=== PATIENT | male | born 1985 | race Caucasian/White ===

== ENCOUNTER 2017-01-27 22:33 | Emergency (ER) | payer SELFPAY ==
--- NOTE | 2017-01-28 02:51 | ED ORDER SUMMARY ---
..... Patient: RADHA MOONEY OrderSheet [facility] VisitID: [id number] [address] [place] [address] 31y, M Registration Date/Time: 01/27/2017 ORDER SHEET Weight: 81.6 kg Allergies: Penicillins GENERAL ORDERS: I&D Tray (23:52 01/27/2017 Maddison MILTON) (0:02 RKaruga) Culture, Wound Deep (Arm) (swab) Urgent (00:56 01/28/2017 Maddison MILTON) (Ack 1:01 Christine ER Tech1) (1:12 CHernandez R.N.) CBC w Diff Urgent (00:57 01/28/2017 Maddison MILTON) (Ack 1:01 Chrsitine ER Tech1) (1:12 CHernandez R.N.) MEDICATION ORDERS: Bactrim DS PO (Tablet 800-160 mg) 2 tabs (NOW) (00:57 01/28/2017 Maddison MILTON) (Ack 0:59 Gelynandez R.N.) (1:45 JSanders R.N.) IV FLUIDS: Vancomycin IV 25 mg/kg (NOW) (00:56 01/28/2017 Maddison MILTON) (Ack 0:56 Gelynandez R.N.) (1:44 JSanders R.N.) IV NS : initial bolus none -, then 250 mL/hr for 4h (NOW); Routine (00:57 01/28/2017 Maddison MILTON) (Ack 0:58 Gelynandez R.N.) (1:42 JSanders R.N.) ORDER SHEET NOTES: [Electronically signed by Toshia Crawford R.N. (04:14 01/28/2017)] [Electronically signed by Sergio Martinez MD (09:16 01/29/2017)] [Electronically locked/signed by Toshia Crawford R.N. (04:14 01/28/2017)]
--- NOTE | 2017-01-28 02:51 | ED NURSING NOTES ---
Clinical Report - Nurses [facility] [place] [address] 01/27/2017 22:34 Patient: RADHA MOONEY TRIAGE Triage time 23:20. Acuity: LEVEL 3. Chief Complaint: LEFT UPPER EXTREMITY PAIN, SWELLING and REDNESS. Location of symptoms- left forearm. --23:29 Kirit Meneses R.N. Weight: 81.6 kg. Height/Length: 73 inches. BMI: 23.7. --23:28 Kirit Meneses R.N. Medications None. --23:24 Kirit Meneses R.N. (aunt). --23:29 Kirit Meneses R.N. Allergies Penicillins. --23:24 Kirit Meneses R.N. History Arrived by private vehicle. Historian: family (aunt). Accompanied by family. ( Shooting drugs on his left arm and developed abscess on his left forearm. Increased redness and swelling on his forearm in the last 2 days. No fever.). This occurred (3 days ago). He has had large area of redness with tenderness and heat at wound site on left forearm. Treatment INSTRUCTIONAL SYSTEMS DESIGN CONSULTANT: None. PAST MEDICAL HX: Tetanus status: unknown. SOCIAL HX: Heavy tobacco smoker (cigarette)- 1 pack per day. History of weekly drug use: methamphetamines. (3 days ago). --23:29 Kirit Meneses R.N. PROBLEMS: Substance Abuse. Tetanus Status. Abscess. Asthma. Immunizations. --23:26 Kirit Meneses R.N. Interventions ID band on patient. To room. --23:29 Kirit Meneses R.N. PHYSICAL ASSESSMENT Ambulatory to room. GENERAL / NEURO / PSYCH: Alert. Appears in no acute distress. EXTREMITIES: Erythema with tenderness, warmth, swelling and lymphangitis to left forearm. Extremities exhibit normal ROM. Left forearm: tenderness, swelling, erythema and large abrasion. SKIN: Extremity wound present. Skin is warm. --23:32 Kirit Meneses R.N. NURSING PROGRESS NOTES Patient identifiers checked. Call light placed in reach. Side rails up x 1. Bed placed in lowest position. Brakes of bed on. Patient ready for evaluation- chart flagged and ED physician and TOOL CLERK notified. --23:33 Kirit Meneses R.N. 01:06 01/28/2017 Site #1 started via IV in the right antecubital space with an 20g angiocath; one attempt. Blood drawn: rainbow set. Labeled in the presence of the patient and sent to the lab. Saline lock flushed with 10 mL saline. --01:06 Kirit Meneses R.N. Patient ID band checked for patient name and birthdate: family confirmed. Blood samples drawn from the right antecubital space peripheral IV site (prior to IV fluid start) by nurse ; labeled in presence of the patient and sent to lab: rainbow set. Line flushed with 10 mL normal saline post blood draw. --01:07 Kirit Meneses R.N. late entry - 01:30 01/28/17. Care transferred and report received (Kirit, RN). --01:50 Toshia Crawford R.N. 01:42 01/28/2017 Started bag #1 1000 mL IV Fluids IV NS (Saline); at 250 mL/hr over 4 hour(s) via site #1 via IV pump. Allergies verified and confirmed 5 rights. IV patency established. IV site checked: no pain, redness, or swelling. IV flushed thoroughly pre- and post-medication administration. --01:42 Toshia Crawford R.N. 01:42 01/28/17. ( Patient requested mother to come back to room since he was getting ABO through IV.). --01:42 Toshia Crawford R.N. 01:44 01/28/2017 Started 2 gm of Vancomycin IVPB in bag #1 500 mL; at 270 mL/hr over 2 hour(s) via site #1 via IV pump. Allergies verified and confirmed 5 rights. IV patency established. IV site checked: no pain, redness, or swelling. IV flushed thoroughly pre- and post-medication administration (Patient dose came out to 2040mg Patient given 2Gram Vancomycin in 500mL bag of NS after Vanc diluted with 20cc sterile water each). --01:44 Toshia Crawford R.N. 01:45 01/28/2017 Bactrim DS (Sulfamethoxazole-TMP DS) PO Tablets 2 tab given. Allergies verified and confirmed 5 rights. --01:45 Toshia Crawford R.N. 01:55 01/28/17. ( Patient not having any allergic reaction to vancomycin). --01:55 Toshia Crawford R.N. 01:55 01/28/17. ( Patient is tolerating well, no redness at IV site, no SOB or flushing noted). --01:55 Toshia Crawford R.N. 02:19 01/28/17. ( Patient doing ok, talking amongst himself. No blanket needed at this time per patient). --02:19 Toshia Crawford R.N. 02:25 01/28/2017 IV Fluids IV NS Discontinued: bag #1 discontinued. Total amount infused: 10 mL. IV patency established. IV site checked: no pain, redness, or swelling. IV flushed thoroughly. --04:08 Toshia Crawford R.N. 02:25 01/28/2017 Vancomycin IVPB Discontinued: bag #2 discontinued. Total amount infused: 100 mL. IV patency established. IV site checked: no pain, redness, or swelling. IV flushed thoroughly. --04:08 Toshia Crawford R.N. DISPOSITION / DISCHARGE 02:25 01/28/2017 Site #1 removed upon discharge. Bandaid applied. --04:09 Toshia Crawford R.N. 04:11 01/28/17. Departure time: 02:35 Jan 28 2017. The patient left the Emergency Department without completion of treatment; patient was accompanied by a family member. (Confused/disoriented). He notified the ED staff prior to leaving the department and stated is leaving the ED due to the long waiting time. Notified the ED physician and charge nurse of patient departure. Prior to leaving the ED, he was advised to stay for completion of treatment and return if needed. He was informed of the risks of leaving and verbalized understanding of these risks. Patient signed form prior to leaving. He left the Emergency Department ambulatory and via private vehicle. --04:11 Toshia Crawford R.N. Locked/Released at 01/28/2017 4:14 by Toshia Crawford R.N.
--- NOTE | 2017-01-28 02:51 | ED NURSING NOTES ---
Clinical Report - Nurses Merged With [facility] [place] [address] 01/27/2017 22:34 Patient: RADHA MOONEY TRIAGE Triage time 23:20. Acuity: LEVEL 3. Chief Complaint: LEFT UPPER EXTREMITY PAIN, SWELLING and REDNESS. Location of symptoms- left forearm. --23:29 Kirit Meneses R.N. Weight: 81.6 kg. Height/Length: 73 inches. BMI: 23.7. --23:28 Kirit Meneses R.N. Medications None. --23:24 Kirit Meneses R.N. (aunt). --23:29 Kirit Meneses R.N. Allergies Penicillins. --23:24 Kirit Meneses R.N. History Arrived by private vehicle. Historian: family (aunt). Accompanied by family. ( Shooting drugs on his left arm and developed abscess on his left forearm. Increased redness and swelling on his forearm in the last 2 days. No fever.). This occurred (3 days ago). He has had large area of redness with tenderness and heat at wound site on left forearm. Treatment CAREER DEVELOPMENT CONSULTANT: None. PAST MEDICAL HX: Tetanus status: unknown. SOCIAL HX: Heavy tobacco smoker (cigarette)- 1 pack per day. History of weekly drug use: methamphetamines. (3 days ago). --23:29 Kirit Meneses R.N. PROBLEMS: Substance Abuse. Tetanus Status. Abscess. Asthma. Immunizations. --23:26 Kirit Meneses R.N. Interventions ID band on patient. To room. --23:29 Kirit Meneses R.N. PHYSICAL ASSESSMENT Ambulatory to room. GENERAL / NEURO / PSYCH: Alert. Appears in no acute distress. EXTREMITIES: Erythema with tenderness, warmth, swelling and lymphangitis to left forearm. Extremities exhibit normal ROM. Left forearm: tenderness, swelling, erythema and large abrasion. SKIN: Extremity wound present. Skin is warm. --23:32 Kirit Meneses R.N. NURSING PROGRESS NOTES Patient identifiers checked. Call light placed in reach. Side rails up x 1. Bed placed in lowest position. Brakes of bed on. Patient ready for evaluation- chart flagged and ED physician and INTERNAL COMMUNICATIONS WRITER notified. --23:33 Kirit Meneses R.N. 01:06 01/28/2017 Site #1 started via IV in the right antecubital space with an 20g angiocath; one attempt. Blood drawn: rainbow set. Labeled in the presence of the patient and sent to the lab. Saline lock flushed with 10 mL saline. --01:06 Kirit Meneses R.N. Patient ID band checked for patient name and birthdate: family confirmed. Blood samples drawn from the right antecubital space peripheral IV site (prior to IV fluid start) by nurse ; labeled in presence of the patient and sent to lab: rainbow set. Line flushed with 10 mL normal saline post blood draw. --01:07 Kirit Meneses R.N. late entry - 01:30 01/28/17. Care transferred and report received (Kirit, RN). --01:50 Toshia Crawford R.N. 01:42 01/28/2017 Started bag #1 1000 mL IV Fluids IV NS (Saline); at 250 mL/hr over 4 hour(s) via site #1 via IV pump. Allergies verified and confirmed 5 rights. IV patency established. IV site checked: no pain, redness, or swelling. IV flushed thoroughly pre- and post-medication administration. --01:42 Toshia Crawford R.N. 01:42 01/28/17. ( Patient requested mother to come back to room since he was getting ABO through IV.). --01:42 Toshia Crawford R.N. 01:44 01/28/2017 Started 2 gm of Vancomycin IVPB in bag #1 500 mL; at 270 mL/hr over 2 hour(s) via site #1 via IV pump. Allergies verified and confirmed 5 rights. IV patency established. IV site checked: no pain, redness, or swelling. IV flushed thoroughly pre- and post-medication administration (Patient dose came out to 2040mg Patient given 2Gram Vancomycin in 500mL bag of NS after Vanc diluted with 20cc sterile water each). --01:44 Toshia Crawford R.N. 01:45 01/28/2017 Bactrim DS (Sulfamethoxazole-TMP DS) PO Tablets 2 tab given. Allergies verified and confirmed 5 rights. --01:45 Toshia Crawford R.N. 01:55 01/28/17. ( Patient not having any allergic reaction to vancomycin). --01:55 Toshia Crawford R.N. 01:55 01/28/17. ( Patient is tolerating well, no redness at IV site, no SOB or flushing noted). --01:55 Toshia Crawford R.N. 02:19 01/28/17. ( Patient doing ok, talking amongst himself. No blanket needed at this time per patient). --02:19 Toshia Crawford R.N. 02:25 01/28/2017 IV Fluids IV NS Discontinued: bag #1 discontinued. Total amount infused: 10 mL. IV patency established. IV site checked: no pain, redness, or swelling. IV flushed thoroughly. --04:08 Toshia Crawford R.N. 02:25 01/28/2017 Vancomycin IVPB Discontinued: bag #2 discontinued. Total amount infused: 100 mL. IV patency established. IV site checked: no pain, redness, or swelling. IV flushed thoroughly. --04:08 Toshia Crawford R.N. DISPOSITION / DISCHARGE 02:25 01/28/2017 Site #1 removed upon discharge. Bandaid applied. --04:09 Toshia Crawford R.N. 04:11 01/28/17. Departure time: 02:35 Jan 28 2017. The patient left the Emergency Department without completion of treatment; patient was accompanied by a family member. (Confused/disoriented). He notified the ED staff prior to leaving the department and stated is leaving the ED due to the long waiting time. Notified the ED physician and charge nurse of patient departure. Prior to leaving the ED, he was advised to stay for completion of treatment and return if needed. He was informed of the risks of leaving and verbalized understanding of these risks. Patient signed form prior to leaving. He left the Emergency Department ambulatory and via private vehicle. --04:11 Toshia Crawford R.N. Locked/Released at 01/28/2017 4:14 by Toshia Crawford R.N.
--- NOTE | 2017-01-28 02:51 | ED CLINICAL REPORT ---
Clinical Report - Physicians/Mid Levels [facility] [address] [place] [address] 01/27/2017 22:34 Patient: RADHA MOONEY Time Seen: 23:47 Dangelo 2016. Arrived- By private vehicle. Historian- patient. CPT: ER phys charges level 4 plus (#125133). Abscess complicated I&D (#[id number]). HISTORY OF PRESENT ILLNESS Chief Complaint: BOIL and TENDER AREA. 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 It is described as painful. It has been located on the left forearm. A cause has been identified. (IVDA). Similar symptoms previously: None. Recent medical care: Not recently seen/assessed. REVIEW OF SYSTEMS No fever, chills, sore throat, cough or difficulty breathing. No hoarseness, lump in throat, enlarged lymph nodes, chest pain or abdominal pain. No nausea, difficulty with urination, joint pain or vomiting. All systems otherwise negative, except as recorded above. PAST HISTORY Substance Abuse. Tetanus Status. Abscess today Asthma. Immunizations. Medications: None. Allergies: Penicillins. SOCIAL HISTORY Heavy tobacco smoker (cigarette)- 1 pack per day. History of IV drug use: methamphetamines. No alcohol use. ADDITIONAL NOTES The nursing notes have been reviewed. PHYSICAL EXAM Appearance: Alert. Anxious. Patient in mild distress. (psychomotor agitation consistent with methamphetamine use.). Eyes: Pupils equal, round and reactive to light. Conjunctivae and eyelids normal. ENT: Ears normal. Nose normal. Pharynx normal. Neck: Neck supple. CVS: Normal heart rate and rhythm. Heart sounds normal. No cardiac murmur. Respiratory: No respiratory distress. Breath sounds normal. Chest nontender. Abdomen: Nontender. Skin: Skin warm and dry. Single large abscess with fluctuance, pointing and cellulitis to left forearm. Extremities: (see above,). Neuro: Oriented X 3. No motor deficit. No sensory deficit. LABS, X-RAYS, AND EKG Laboratory Tests: CBC w Diff: (NITA: 01/28/2017 01:10) ( MsgRcvd 01/28/2017 01:23) Final results Test Result Flag Units (Reference) WHITE BLOOD COUNT 19.5 H K/uL (4.5-11.5) RED BLOOD COUNT 5.76 M/uL (4.50-5.90) HEMOGLOBIN 15.9 gm/dL (13.5-17.5) HEMATOCRIT 48.4 % (41.0-53.0) MEAN CELL VOLUME 84 fL (80-100) MEAN CORPUSCULAR HGB 28 pg (26-34) MEAN CORPUSCULAR HGB CONC 33 g/dL (31-37) RED CELL DISTRIBUTION WIDTH 14.3 % (11.6-14.8) PLATELET COUNT 383 K/uL (150-400) LYMPH % 14.4 L % (25-40) MONO % 4.8 % (3-14) GRANULOCYTE % 80.8 Culture, Wound Deep: (NITA: 01/28/2017 01:10) ( MsgRcvd 01/28/2017 02:18) IP SPECIMEN DESCRIPTION: SWAB Test Result Flag Units (Reference) GRAM STAIN, WOUND, DEEP GRAM POSITIVE COCCI: MODERATE WHITE BLOOD CELLS: RARE . PROGRESS AND PROCEDURES Incision & Drainage of Abscess: The abscess is located in the left forearm. Consent was obtained. Anesthesia provided using 2% lidocaine with bicarb. The abscess was incised with a #11 surgical blade. A large amount of pus was drained. Cavity was irrigated with saline and packed with gauze. Sample obtained for cultures and gram stain. A dressing was applied. Estimated blood loss: 3 mL. ( Pt would only tolerate packing of a small amount of gauze into the wound.). Course of Care: IV NS Vancomycin 2g IV Bactrim 2 po 02:38 01/28/17. patient now requesting to stop vancomycin IV and go home. Apparently his family needs to leave. He is dependent on his family for a ride home. AMA discussion is provided. Patient will sign out AMA Only 1/3 of vanco infusion completed. Patient/family counseled. Disposition: Discharged home (AMA). CLINICAL IMPRESSION Single deep abscess to the left upper extremity with incision and drainage (forearm). Substance abuse problems: abuse of methamphetamine. Substance dependence problems: dependence on methamphetamine. Leaving AMA. INSTRUCTIONS Warnings: Further evaluation is necessary. Prescription Medications: Bactrim DS 800 mg / 160 mg: take 1 tablet orally every 12 hours for 14 days. No refill. Keflex 500 mg: take 1 capsule orally every 12 hours for 14 days. No refill. OTC Medications: Acetaminophen (available over the counter): take according to label instructions. Follow-up: Return to the emergency department if cannot get to clinic Doctor. in two days. Understanding of the discharge instructions verbalized by patient. AMA warnings: Time of assessment: 224. Oriented to person, place, and time. Gives appropriate answers and rational explanation of refusal of care. No indication for involuntary commitment is present, signs of psychosis, auditory hallucinations, delusional thinking or suicidal ideations. No slurred speech. Speaks coherently. Clinical Impression: the patient has the capacity to make decisions regarding the medical care offered. Relevant issues reviewed and discussed with the patient and family. Aware of suspected diagnosis suggested by screening exam. The suspected diagnosis, based upon the initiated medical screening exam, is deep abscess left forearm. and has been discussed with the patient and family. Acknowledges understanding of the reasons for recommendations regarding medical treatment. The recommended medical care being refused has been discussed with the patient and family. The risks of refusing recommended care that were disclosed and acknowledged are , loss of limb and loss of current lifestyle. Discharge instructions were provided to the patient and responsible libertarian. REFUSAL OF CARE STATEMENT (patient to review and sign in discharge instructions): I have read this paragraph. I understand that a doctor at this hospital wants to give me certain medical care. The doctor explained that care to me, and I understand what that care is. The doctor also explained to me what could happen to me if I leave here without having that care, and I understand what he said. I know that I am welcome to return to this hospital at any time to receive the recommended care or any other care that I may need at any time, regardless of my ability to pay for such care. Follow-up with: [facility], , , [address], , [place], [phone] Follow up in two days. Call for the next available appointment. (Electronically signed by Sergio Martinez MD 01/29/2017 9:16)
--- NOTE | 2017-01-28 02:51 | ED ORDER SUMMARY ---
..... Patient: RADHA MOONEY OrderSheet [facility] VisitID: [id number] [address] [place] [address] 31y, M Registration Date/Time: 01/27/2017 ORDER SHEET Weight: 81.6 kg Allergies: Penicillins GENERAL ORDERS: I&D Tray (23:52 01/27/2017 Maddison MILTON) (0:02 RKaruga) Culture, Wound Deep (Arm) (swab) Urgent (00:56 01/28/2017 Maddison MILTON) (Ack 1:01 Christine ER Tech1) (1:12 CHernandez R.N.) CBC w Diff Urgent (00:57 01/28/2017 Maddison MILTON) (Ack 1:01 Christine ER Tech1) (1:12 CHernandez R.N.) MEDICATION ORDERS: Bactrim DS PO (Tablet 800-160 mg) 2 tabs (NOW) (00:57 01/28/2017 Maddison MILTON) (Ack 0:59 Gelynandez R.N.) (1:45 JSanders R.N.) IV FLUIDS: Vancomycin IV 25 mg/kg (NOW) (00:56 01/28/2017 Maddison MILTON) (Ack 0:56 Gelynandez R.N.) (1:44 JSanders R.N.) IV NS : initial bolus none -, then 250 mL/hr for 4h (NOW); Routine (00:57 01/28/2017 Maddison MILTON) (Ack 0:58 Gelynandez R.N.) (1:42 JSanders R.N.) ORDER SHEET NOTES: [Electronically signed by Toshia Crawford R.N. (04:14 01/28/2017)] [Electronically signed by Sergio Martinez MD (09:16 01/29/2017)] [Electronically locked/signed by Toshia Crawford R.N. (04:14 01/28/2017)]
--- NOTE | 2017-01-28 02:51 | ED CLINICAL REPORT ---
Clinical Report - Physicians/Mid Levels [facility] [address] [place] [address] 01/27/2017 22:34 Patient: RADHA MOONEY Time Seen: 23:47 Dangelo 2016. Arrived- By private vehicle. Historian- patient. CPT: ER phys charges level 4 plus (#[id number]). Abscess complicated I&D (#[id number]). HISTORY OF PRESENT ILLNESS Chief Complaint: BOIL and TENDER AREA. This started 3 days [employer]ATCH UP [employer] and is still present (worse). It is described as painful. It has been located on the left forearm. A cause has been identified. (IVDA). Similar symptoms previously: None. Recent medical care: Not recently seen/assessed. REVIEW OF SYSTEMS No fever, chills, sore throat, cough or difficulty breathing. No hoarseness, lump in throat, enlarged lymph nodes, chest pain or abdominal pain. No nausea, difficulty with urination, joint pain or vomiting. All systems otherwise negative, except as recorded above. PAST HISTORY Substance Abuse. Tetanus Status. Abscess today Asthma. Immunizations. Medications: None. Allergies: Penicillins. SOCIAL HISTORY Heavy tobacco smoker (cigarette)- 1 pack per day. History of IV drug use: methamphetamines. No alcohol use. ADDITIONAL NOTES The nursing notes have been reviewed. PHYSICAL EXAM Appearance: Alert. Anxious. Patient in mild distress. (psychomotor agitation consistent with methamphetamine use.). Eyes: Pupils equal, round and reactive to light. Conjunctivae and eyelids normal. ENT: Ears normal. Nose normal. Pharynx normal. Neck: Neck supple. CVS: Normal heart rate and rhythm. Heart sounds normal. No cardiac murmur. Respiratory: No respiratory distress. Breath sounds normal. Chest nontender. Abdomen: Nontender. Skin: Skin warm and dry. Single large abscess with fluctuance, pointing and cellulitis to left forearm. Extremities: (see above,). Neuro: Oriented X 3. No motor deficit. No sensory deficit. LABS, X-RAYS, AND EKG Laboratory Tests: CBC w Diff: (NITA: 01/28/2017 01:10) ( MsgRcvd 01/28/2017 01:23) Final results Test Result Flag Units (Reference) WHITE BLOOD COUNT 19.5 H K/uL (4.5-11.5) RED BLOOD COUNT 5.76 M/uL (4.50-5.90) HEMOGLOBIN 15.9 gm/dL (13.5-17.5) HEMATOCRIT 48.4 % (41.0-53.0) MEAN CELL VOLUME 84 fL (80-100) MEAN CORPUSCULAR HGB 28 pg (26-34) MEAN CORPUSCULAR HGB CONC 33 g/dL (31-37) RED CELL DISTRIBUTION WIDTH 14.3 % (11.6-14.8) PLATELET COUNT 383 K/uL (150-400) LYMPH % 14.4 L % (25-40) MONO % 4.8 % (3-14) GRANULOCYTE % 80.8 Culture, Wound Deep: (NITA: 01/28/2017 01:10) ( MsgRcvd 01/28/2017 02:18) IP SPECIMEN DESCRIPTION: SWAB Test Result Flag Units (Reference) GRAM STAIN, WOUND, DEEP GRAM POSITIVE COCCI: MODERATE WHITE BLOOD CELLS: RARE . PROGRESS AND PROCEDURES Incision & Drainage of Abscess: The abscess is located in the left forearm. Consent was obtained. Anesthesia provided using 2% lidocaine with bicarb. The abscess was incised with a #11 surgical blade. A large amount of pus was drained. Cavity was irrigated with saline and packed with gauze. Sample obtained for cultures and gram stain. A dressing was applied. Estimated blood loss: 3 mL. ( Pt would only tolerate packing of a small amount of gauze into the wound.). Course of Care: IV NS Vancomycin 2g IV Bactrim 2 po 02:38 01/28/17. patient now requesting to stop vancomycin IV and go home. Apparently his family needs to leave. He is dependent on his family for a ride home. AMA discussion is provided. Patient will sign out AMA Only 1/3 of vanco infusion completed. Patient/family counseled. Disposition: Discharged home (AMA). CLINICAL IMPRESSION Single deep abscess to the left upper extremity with incision and drainage (forearm). Substance abuse problems: abuse of methamphetamine. Substance dependence problems: dependence on methamphetamine. Leaving AMA. INSTRUCTIONS Warnings: Further evaluation is necessary. Prescription Medications: Bactrim DS 800 mg / 160 mg: take 1 tablet orally every 12 hours for 14 days. No refill. Keflex 500 mg: take 1 capsule orally every 12 hours for 14 days. No refill. OTC Medications: Acetaminophen (available over the counter): take according to label instructions. Follow-up: Return to the emergency department if cannot get to clinic Doctor. in two days. Understanding of the discharge instructions verbalized by patient. AMA warnings: Time of assessment: 224. Oriented to person, place, and time. Gives appropriate answers and rational explanation of refusal of care. No indication for involuntary commitment is present, signs of psychosis, auditory hallucinations, delusional thinking or suicidal ideations. No slurred speech. Speaks coherently. Clinical Impression: the patient has the capacity to make decisions regarding the medical care offered. Relevant issues reviewed and discussed with the patient and family. Aware of suspected diagnosis suggested by screening exam. The suspected diagnosis, based upon the initiated medical screening exam, is deep abscess left forearm. and has been discussed with the patient and family. Acknowledges understanding of the reasons for recommendations regarding medical treatment. The recommended medical care being refused has been discussed with the patient and family. The risks of refusing recommended care that were disclosed and acknowledged are , loss of limb and loss of current lifestyle. Discharge instructions were provided to the patient and responsible republican. REFUSAL OF CARE STATEMENT (patient to review and sign in discharge instructions): I have read this paragraph. I understand that a doctor at this hospital wants to give me certain medical care. The doctor explained that care to me, and I understand what that care is. The doctor also explained to me what could happen to me if I leave here without having that care, and I understand what he said. I know that I am welcome to return to this hospital at any time to receive the recommended care or any other care that I may need at any time, regardless of my ability to pay for such care. Follow-up with: [facility], , , [address], , [place], [id number] Follow up in two days. Call for the next available appointment. (Electronically signed by Sergio Martinez MD 01/29/2017 9:16)
--- NOTE | 2017-01-29 09:17 | ED MAR SUMMARY ---
..... Medication Administration Record [facility] [address] [place] [address] Patient: RADHA MOONEY Visit ID: [id number] 31y, M Weight: 81.6 kg Height/Length: 73 in BMI: 23.7 ALLERGIES: Penicillins Start 01:42 01/28/2017 Toshia Crawford R.N., Stop 02:01/28/2017 Toshia Crawford R.N. Medication Administered: IV NS (SALINE), Dose: IV Fluids over 4 hour(s), Rate: 250 mL/hr, Dispensed: 1000 mL bag, Site: #1 right AC. Medication Ordered: IV NS : initial bolus none -, then 250 mL/hr for 4h (NOW); Routine. Start 01:44 01/28/2017 Toshia Crawford R.N., Stop 02:01/28/2017 Toshia Crawford R.N. Medication Administered: VANCOMYCIN [IVPB], Dose: 2 gm IVPB over 2 hour(s), Rate: 270 mL/hr, Dispensed: 500 mL bag, Site: #1 right AC. Medication Ordered: Vancomycin IV 25 mg/kg (NOW). Given 01:45 01/28/2017 Toshia Crawford R.N. Medication Administered: BACTRIM DS [PO] (SULFAMETHOXAZOLE-TMP DS), Dose: 2 tab Tablets PO. Medication Ordered: Bactrim DS PO (Tablet 800-160 mg) 2 tabs (NOW).
--- NOTE | 2017-01-29 09:17 | ED MED RECONCILIATION SUMMARY ---
Patient: RADHA MOONEY Medication Reconciliation Report [facility] VisitID: [id number] [address] [place] [address] 31y, M Registration Date/Time: 01/27/2017 Weight: 81.6 kg Height/Length: 73 in. BMI: 23.7 ALLERGIES: Penicillins The patient's Home Medications are listed below: NONE. The source(s) of the original Home Medication information: aunt The following Medications were given to the patient in the Emergency Department: IV NS IV Fluids bolus 0, then 250 mL/hr, administered: 01/28/2017 1:42:00 AM Vancomycin [IVPB] IVPB bolus 0, then 2 gm 270 mL/hr, administered: 01/28/2017 1:44:00 AM Bactrim DS [PO] PO 2 tab, administered: 01/28/2017 1:45:00 AM The following Medications were prescribed to the patient: Acetaminophen (available over the counter): take according to label instructions. -- Sergio Martinez MD Bactrim DS 800 mg / 160 mg: take 1 tablet orally every 12 hours for 14 days. No refill. -- Sergio Martinez MD Keflex 500 mg: take 1 capsule orally every 12 hours for 14 days. No refill. -- Sergio Martinez MD
--- NOTE | 2017-01-29 09:17 | ED MED RECONCILIATION SUMMARY ---
Patient: RADHA MOONEY Medication Reconciliation Report [facility] VisitID: [id number] [address] [place] [address] 31y, M Registration Date/Time: 01/27/2017 Weight: 81.6 kg Height/Length: 73 in. BMI: 23.7 ALLERGIES: Penicillins The patient's Home Medications are listed below: NONE. The source(s) of the original Home Medication information: aunt The following Medications were given to the patient in the Emergency Department: IV NS IV Fluids bolus 0, then 250 mL/hr, administered: 01/28/2017 1:42:00 AM Vancomycin [IVPB] IVPB bolus 0, then 2 gm 270 mL/hr, administered: 01/28/2017 1:44:00 AM Bactrim DS [PO] PO 2 tab, administered: 01/28/2017 1:45:00 AM The following Medications were prescribed to the patient: Acetaminophen (available over the counter): take according to label instructions. -- Sergio Martinez MD Bactrim DS 800 mg / 160 mg: take 1 tablet orally every 12 hours for 14 days. No refill. -- Sergio Martinez MD Keflex 500 mg: take 1 capsule orally every 12 hours for 14 days. No refill. -- Sergio Martinez MD
--- NOTE | 2017-01-29 09:17 | ED DISCHARGE INSTRUCTIONS ---
Patient: RADHA MOONEY General Instructions [facility] VisitID: [id number] [place] [address] 31y, M Registration Date/Time: 01/27/2017 Single deep abscess to the left upper extremity with incision and drainage (forearm). Substance abuse problems: abuse of methamphetamine. Substance dependence problems: dependence on methamphetamine. Leaving AMA. INSTRUCTIONS Warnings: Further evaluation is necessary. Prescription Medications: Bactrim DS 800 mg / 160 mg: take 1 tablet orally every 12 hours for 14 days. No refill. Keflex 500 mg: take 1 capsule orally every 12 hours for 14 days. No refill. OTC Medications: Acetaminophen (available over the counter): take according to label instructions. Follow-up: Return to the emergency department if cannot get to clinic Doctor. in two days. Understanding of the discharge instructions verbalized by patient. AMA warnings: Time of assessment: 0225. Oriented to person, place, and time. Gives appropriate answers and rational explanation of refusal of care. No indication for involuntary commitment is present, signs of psychosis, auditory hallucinations, delusional thinking or suicidal ideations. No slurred speech. Speaks coherently. Clinical Impression: the patient has the capacity to make decisions regarding the medical care offered. Relevant issues reviewed and discussed with the patient and family. Aware of suspected diagnosis suggested by screening exam. The suspected diagnosis, based upon the initiated medical screening exam, is deep abscess left forearm. and has been discussed with the patient and family. Acknowledges understanding of the reasons for recommendations regarding medical treatment. The recommended medical care being refused has been discussed with the patient and family. The risks of refusing recommended care that were disclosed and acknowledged are , loss of limb and loss of current lifestyle. Discharge instructions were provided to the patient and responsible green party. REFUSAL OF CARE STATEMENT (patient to review and sign in discharge instructions): I have read this paragraph. I understand that a doctor at this hospital wants to give me certain medical care. The doctor explained that care to me, and I understand what that care is. The doctor also explained to me what could happen to me if I leave here without having that care, and I understand what he said. I know that I am welcome to return to this hospital at any time to receive the recommended care or any other care that I may need at any time, regardless of my ability to pay for such care. Follow-up with: [facility], , , [address], [facility], [id number] Follow up in two days. Call for the next available appointment. ADDITIONAL INFORMATION Abscess [Incision & Drainage] An abscess (sometimes called a boil) occurs when bacteria get trapped under the skin and begin to grow. Pus forms inside the abscess as the body responds to the bacteria. An abscess can occur with an insect bite, ingrown hair, blocked oil gland, pimple, cyst, or puncture wound. Treatment of your abscess has required an incision to drain the pus. If the abscess pocket was large, a gauze packing may have been inserted. This will need to be removed and possibly replaced on your next visit. Antibiotics are not required in the treatment of a simple abscess, unless the infection is spreading into the skin around the wound (known as cellulitis). Healing of the wound will take about one to two weeks depending on the size of the abscess. Healthy tissue will grow from the bottom and sides of the opening until it seals over. Home Care: The wound may drain for the first two days. Cover the wound with a clean dry dressing. If the dressing becomes soaked with blood or pus, change it. If a gauze packing was placed inside the abscess cavity, you may be advised to remove it yourself. You may do this in the shower. Once the packing is removed, you should wash the area in the shower or bath 3 to 4 times a day, until the skin opening has closed. If you were prescribed antibiotics, take them as directed until they are all gone. You may use acetaminophen (Tylenol) or ibuprofen (Motrin, Advil) to control pain, unless another pain medicine was prescribed. [ NOTE: If you have liver disease or ever had a stomach ulcer, talk with your doctor before using these medicines.] Follow Up with your doctor as advised by our staff. If a gauze packing was inserted in your wound, it should be removed in 1-2 days. Check your wound every day for the signs of worsening infection listed below. Get Prompt Medical Attention if any of the following occur: Increasing redness or swelling Red streaks in the skin leading away from the wound Increasing local pain or swelling Continued pus draining from the wound two days after treatment Fever of 100.4F (38C) or higher, or as directed by your healthcare provider Staph Infection (MRSA) "Staph" is the short name for the common bacteria called "staphylococcus aureus". Staph bacteria are often present on the skin without causing an infection. If it gets under the skin an infection occurs. This causes redness, tenderness, swelling and sometimes fluid drainage. MRSA stands for "Methicillin-Resistant Staph Aureus". Unlike a common staph infection, MRSA bacteria are resistant to the usual antibiotics and harder to treat. Also, MRSA is more toxic than common staph bacteria. It can spread quickly throughout the body and cause a life-threatening illness. MRSA is spread to others by direct physical contact with the bacteria. MRSA can also be transmitted from items contaminated by a person who has the bacteria, such as bandages, towels, bed sheets, or sports equipment. It is not spread through the air. Once you have a MRSA skin infection, you are at risk of having it recur in the future. If MRSA infection is suspected, the doctor may take a wound culture to confirm the diagnosis. Any abscess will be drained. One or sometimes two antibiotics that work against MRSA will be prescribed. Home Care: 1) Take any antibiotics prescribed exactly as directed until they are gone. 2) Follow the same washing procedures as outlined for Household Members below. 3) Keep draining wounds covered with clean, dry bandages. Change dressings as they become soiled. 4) You and those in contact with you should wash their hands frequently with soap and warm water or use an alcohol-based hand tempering machine operator. Do this after each time you change the bandage or touch the wound. 5) Avoid sharing personal items such as towels, washcloths, razors, clothing, or uniforms. Wash soiled sheets, towels or clothes in hot water with laundry detergent. Use an automatic clothes dryer set on high to kill any remaining bacteria. 6) Remove any artificial nails and nail ukrainian. 7) If you use a gym, wipe down equipment before and after each use. Treatment Of Household Members If you have been diagnosed with possible MRSA infection, those living with you are at higher risk of carrying the bacteria on their skin or in their nose, even if there is no sign of infection. Bacteria must be removed from the skin of all household members (including you) at the same time, so that it is not passed back and forth. Advise them to remove the bacteria as follows: Wash your whole body (scalp to toes) daily for five days with Hibiclens (chlorhexidine). Scrub fingernails with a brush for one minute twice a day. If any skin infections are present (boils, abscess, infected cut) these must be treated by a doctor. Washing alone will not treat a MRSA infection. Clean counter tops and children's toys; do not share personal items such as toothbrush and razors. It is okay to share glasses, plates, utensils. If antibiotic ointment was prescribed use it as directed. Follow Up with your doctor or as advised by our staff. If a wound culture was taken, call as directed in two days to obtain the results. If the culture result is positive for MRSA, tell medical personnel in the future that you were treated for this type of infection. Get Prompt Medical Attention if any of the following occur: -- Increasing redness, swelling or pain -- Red streaks in the skin around the wound -- Weakness or dizziness -- New appearance of pus or drainage from the wound -- New fever over 100.4 F (38.0 C) Sulfamethoxazole, Trimethoprim Oral tablet What is this medicine? SULFAMETHOXAZOLE; TRIMETHOPRIM or SMX-TMP (suhl fuh meth OK enrike zohl; trye METH oh prim) is a combination of a sulfonamide antibiotic and a second antibiotic, trimethoprim. It is used to treat or prevent certain kinds of bacterial infections. It will not work for colds, flu, or other viral infections. How should I use this medicine? Take this medicine by mouth with a full glass of water. Follow the directions on the prescription label. Take your medicine at regular intervals. Do not take it more often than directed. Do not skip doses or stop your medicine early. Talk to your agricultural commodities inspector regarding the use of this medicine in children. Special care may be needed. This medicine has been used in children as young as 2 months of age. What side effects may I notice from receiving this medicine? Side effects that you should report to your doctor or health pulmonary care nurse as soon as possible: allergic reactions like skin rash or hives, swelling of the face, lips, or tongue breathing problems fever or chills, sore throat irregular heartbeat, chest pain joint or muscle pain pain or difficulty passing urine red pinpoint spots on skin redness, blistering, peeling or loosening of the skin, including inside the mouth unusual bleeding or bruising unusually weak or tired yellowing of the eyes or skin Side effects that usually do not require medical attention (report to your doctor or health pulmonary care nurse if they continue or are bothersome): diarrhea dizziness headache loss of appetite nausea, vomiting nervousness What may interact with this medicine? Do not take this medicine with any of the following medications: aminobenzoate potassium dofetilide metronidazole This medicine may also interact with the following medications: MARK inhibitors like benazepril, enalapril, lisinopril, and ramipril cyclosporine digoxin diuretics indomethacin medicines for diabetes methenamine methotrexate phenytoin potassium supplements pyrimethamine sulfinpyrazone tricyclic antidepressants warfarin What if I miss a dose? If you miss a dose, take it as soon as you can. If it is almost time for your next dose, take only that dose. Do not take double or extra doses. Where should I keep my medicine? Keep out of the reach of children. Store at room temperature between 20 to 25 degrees C (68 to 77 degrees F). Protect from light. Throw away any unused medicine after the expiration date. What should I tell my health care provider before I take this medicine? They need to know if you have any of these conditions: anemia asthma being treated with anticonvulsants if you frequently drink alcohol containing drinks kidney disease liver disease low level of folic acid or [id number] dehydrogenase poor nutrition or malabsorption porphyria severe allergies thyroid disorder an unusual or allergic reaction to sulfamethoxazole, trimethoprim, sulfa drugs, other medicines, foods, dyes, or preservatives or trying to get breast-feeding What should I watch for while using this medicine? Tell your doctor or health pulmonary care nurse if your symptoms do not improve. Drink several glasses of water a day to reduce the risk of kidney problems. Do not treat diarrhea with over the counter products. Contact your doctor if you have diarrhea that lasts more than 2 days or if it is severe and watery. This medicine can make you more sensitive to the sun. Keep out of the sun. If you cannot avoid being in the sun, wear protective clothing and use a sunscreen. Do not use sun lamps or tanning beds/booths. Cephalexin Monohydrate Oral tablet What is this medicine? CEPHALEXIN (sef a DARREN in) is a cephalosporin antibiotic. It is used to treat certain kinds of bacterial infections It will not work for colds, flu, or other viral infections. How should I use this medicine? Take this medicine by mouth with a full glass of water. Follow the directions on the prescription label. This medicine can be taken with or without food. Take your medicine at regular intervals. Do not take your medicine more often than directed. Take all of your medicine as directed even if you think you are better. Do not skip doses or stop your medicine early. Talk to your agricultural commodities inspector regarding the use of this medicine in children. While this drug may be prescribed for selected conditions, precautions do apply. What side effects may I notice from receiving this medicine? Side effects that you should report to your doctor or health pulmonary care nurse as soon as possible: allergic reactions like skin rash, itching or hives, swelling of the face, lips, or tongue breathing problems pain or trouble passing urine redness, blistering, peeling or loosening of the skin, including inside the mouth severe or watery diarrhea unusually weak or tired yellowing of the eyes, skin Side effects that usually do not require medical attention (report to your doctor or health pulmonary care nurse if they continue or are bothersome): gas or heartburn genital or anal irritation headache joint or muscle pain nausea, vomiting What may interact with this medicine? probenecid some other antibiotics What if I miss a dose? If you miss a dose, take it as soon as you can. If it is almost time for your next dose, take only that dose. Do not take double or extra doses. There should be at least 4 to 6 hours between doses. Where should I keep my medicine? Keep out of the reach of children. Store at room temperature between 59 and 86 degrees F (15 and 30 degrees C). Throw away any unused medicine after the expiration date. What should I tell my health care provider before I take this medicine? They need to know if you have any of these conditions: kidney disease stomach or intestine problems, especially colitis an unusual or allergic reaction to cephalexin, other cephalosporins, penicillins, other antibiotics, medicines, foods, dyes or preservatives or trying to get breast-feeding What should I watch for while using this medicine? Tell your doctor or health pulmonary care nurse if your symptoms do not begin to improve in a few days. Do not treat diarrhea with over the counter products. Contact your doctor if you have diarrhea that lasts more than 2 days or if it is severe and watery. If you have diabetes, you may get a false-positive result for sugar in your urine. Check with your doctor or health pulmonary care nurse. You have been given the following additional information: Abscess, Incision And Drainage MRSA Skin Infection, Suspected Or Confirmed Sulfamethoxazole, Trimethoprim Oral tablet Cephalexin Monohydrate Oral tablet (Electronically signed by Sergio Martinez MD 01/29/2017 9:16)
--- NOTE | 2017-01-29 09:17 | ED DISCHARGE INSTRUCTIONS ---
Patient: RADHA MOONEY General Instructions Formerly [facility] VisitID: [id number] [place] [address] 31y, M Registration Date/Time: 01/27/2017 Single deep abscess to the left upper extremity with incision and drainage (forearm). Substance abuse problems: abuse of methamphetamine. Substance dependence problems: dependence on methamphetamine. Leaving AMA. INSTRUCTIONS Warnings: Further evaluation is necessary. Prescription Medications: Bactrim DS 800 mg / 160 mg: take 1 tablet orally every 12 hours for 14 days. No refill. Keflex 500 mg: take 1 capsule orally every 12 hours for 14 days. No refill. OTC Medications: Acetaminophen (available over the counter): take according to label instructions. Follow-up: Return to the emergency department if cannot get to clinic Doctor. in two days. Understanding of the discharge instructions verbalized by patient. AMA warnings: Time of assessment: 0225. Oriented to person, place, and time. Gives appropriate answers and rational explanation of refusal of care. No indication for involuntary commitment is present, signs of psychosis, auditory hallucinations, delusional thinking or suicidal ideations. No slurred speech. Speaks coherently. Clinical Impression: the patient has the capacity to make decisions regarding the medical care offered. Relevant issues reviewed and discussed with the patient and family. Aware of suspected diagnosis suggested by screening exam. The suspected diagnosis, based upon the initiated medical screening exam, is deep abscess left forearm. and has been discussed with the patient and family. Acknowledges understanding of the reasons for recommendations regarding medical treatment. The recommended medical care being refused has been discussed with the patient and family. The risks of refusing recommended care that were disclosed and acknowledged are , loss of limb and loss of current lifestyle. Discharge instructions were provided to the patient and responsible libertarian. REFUSAL OF CARE STATEMENT (patient to review and sign in discharge instructions): I have read this paragraph. I understand that a doctor at this hospital wants to give me certain medical care. The doctor explained that care to me, and I understand what that care is. The doctor also explained to me what could happen to me if I leave here without having that care, and I understand what he said. I know that I am welcome to return to this hospital at any time to receive the recommended care or any other care that I may need at any time, regardless of my ability to pay for such care. Follow-up with: [facility], , , [address], [facility], [id number] Follow up in two days. Call for the next available appointment. ADDITIONAL INFORMATION Abscess [Incision & Drainage] An abscess (sometimes called a boil) occurs when bacteria get trapped under the skin and begin to grow. Pus forms inside the abscess as the body responds to the bacteria. An abscess can occur with an insect bite, ingrown hair, blocked oil gland, pimple, cyst, or puncture wound. Treatment of your abscess has required an incision to drain the pus. If the abscess pocket was large, a gauze packing may have been inserted. This will need to be removed and possibly replaced on your next visit. Antibiotics are not required in the treatment of a simple abscess, unless the infection is spreading into the skin around the wound (known as cellulitis). Healing of the wound will take about one to two weeks depending on the size of the abscess. Healthy tissue will grow from the bottom and sides of the opening until it seals over. Home Care: The wound may drain for the first two days. Cover the wound with a clean dry dressing. If the dressing becomes soaked with blood or pus, change it. If a gauze packing was placed inside the abscess cavity, you may be advised to remove it yourself. You may do this in the shower. Once the packing is removed, you should wash the area in the shower or bath 3 to 4 times a day, until the skin opening has closed. If you were prescribed antibiotics, take them as directed until they are all gone. You may use acetaminophen (Tylenol) or ibuprofen (Motrin, Advil) to control pain, unless another pain medicine was prescribed. [ NOTE: If you have liver disease or ever had a stomach ulcer, talk with your doctor before using these medicines.] Follow Up with your doctor as advised by our staff. If a gauze packing was inserted in your wound, it should be removed in 1-2 days. Check your wound every day for the signs of worsening infection listed below. Get Prompt Medical Attention if any of the following occur: Increasing redness or swelling Red streaks in the skin leading away from the wound Increasing local pain or swelling Continued pus draining from the wound two days after treatment Fever of 100.4F (38C) or higher, or as directed by your healthcare provider Staph Infection (MRSA) "Staph" is the short name for the common bacteria called "staphylococcus aureus". Staph bacteria are often present on the skin without causing an infection. If it gets under the skin an infection occurs. This causes redness, tenderness, swelling and sometimes fluid drainage. MRSA stands for "Methicillin-Resistant Staph Aureus". Unlike a common staph infection, MRSA bacteria are resistant to the usual antibiotics and harder to treat. Also, MRSA is more toxic than common staph bacteria. It can spread quickly throughout the body and cause a life-threatening illness. MRSA is spread to others by direct physical contact with the bacteria. MRSA can also be transmitted from items contaminated by a person who has the bacteria, such as bandages, towels, bed sheets, or sports equipment. It is not spread through the air. Once you have a MRSA skin infection, you are at risk of having it recur in the future. If MRSA infection is suspected, the doctor may take a wound culture to confirm the diagnosis. Any abscess will be drained. One or sometimes two antibiotics that work against MRSA will be prescribed. Home Care: 1) Take any antibiotics prescribed exactly as directed until they are gone. 2) Follow the same washing procedures as outlined for Household Members below. 3) Keep draining wounds covered with clean, dry bandages. Change dressings as they become soiled. 4) You and those in contact with you should wash their hands frequently with soap and warm water or use an alcohol-based hand e commerce architect. Do this after each time you change the bandage or touch the wound. 5) Avoid sharing personal items such as towels, washcloths, razors, clothing, or uniforms. Wash soiled sheets, towels or clothes in hot water with laundry detergent. Use an automatic clothes dryer set on high to kill any remaining bacteria. 6) Remove any artificial nails and nail zambian. 7) If you use a gym, wipe down equipment before and after each use. Treatment Of Household Members If you have been diagnosed with possible MRSA infection, those living with you are at higher risk of carrying the bacteria on their skin or in their nose, even if there is no sign of infection. Bacteria must be removed from the skin of all household members (including you) at the same time, so that it is not passed back and forth. Advise them to remove the bacteria as follows: Wash your whole body (scalp to toes) daily for five days with Hibiclens (chlorhexidine). Scrub fingernails with a brush for one minute twice a day. If any skin infections are present (boils, abscess, infected cut) these must be treated by a doctor. Washing alone will not treat a MRSA infection. Clean counter tops and children's toys; do not share personal items such as toothbrush and razors. It is okay to share glasses, plates, utensils. If antibiotic ointment was prescribed use it as directed. Follow Up with your doctor or as advised by our staff. If a wound culture was taken, call as directed in two days to obtain the results. If the culture result is positive for MRSA, tell medical personnel in the future that you were treated for this type of infection. Get Prompt Medical Attention if any of the following occur: -- Increasing redness, swelling or pain -- Red streaks in the skin around the wound -- Weakness or dizziness -- New appearance of pus or drainage from the wound -- New fever over 100.4 F (38.0 C) Sulfamethoxazole, Trimethoprim Oral tablet What is this medicine? SULFAMETHOXAZOLE; TRIMETHOPRIM or SMX-TMP (suhl fuh meth OK enrike zohl; trye METH oh prim) is a combination of a sulfonamide antibiotic and a second antibiotic, trimethoprim. It is used to treat or prevent certain kinds of bacterial infections. It will not work for colds, flu, or other viral infections. How should I use this medicine? Take this medicine by mouth with a full glass of water. Follow the directions on the prescription label. Take your medicine at regular intervals. Do not take it more often than directed. Do not skip doses or stop your medicine early. Talk to your legal researcher regarding the use of this medicine in children. Special care may be needed. This medicine has been used in children as young as 2 months of age. What side effects may I notice from receiving this medicine? Side effects that you should report to your doctor or health lawn care specialist as soon as possible: allergic reactions like skin rash or hives, swelling of the face, lips, or tongue breathing problems fever or chills, sore throat irregular heartbeat, chest pain joint or muscle pain pain or difficulty passing urine red pinpoint spots on skin redness, blistering, peeling or loosening of the skin, including inside the mouth unusual bleeding or bruising unusually weak or tired yellowing of the eyes or skin Side effects that usually do not require medical attention (report to your doctor or health lawn care specialist if they continue or are bothersome): diarrhea dizziness headache loss of appetite nausea, vomiting nervousness What may interact with this medicine? Do not take this medicine with any of the following medications: aminobenzoate potassium dofetilide metronidazole This medicine may also interact with the following medications: MARK inhibitors like benazepril, enalapril, lisinopril, and ramipril cyclosporine digoxin diuretics indomethacin medicines for diabetes methenamine methotrexate phenytoin potassium supplements pyrimethamine sulfinpyrazone tricyclic antidepressants warfarin What if I miss a dose? If you miss a dose, take it as soon as you can. If it is almost time for your next dose, take only that dose. Do not take double or extra doses. Where should I keep my medicine? Keep out of the reach of children. Store at room temperature between 20 to 25 degrees C (68 to 77 degrees F). Protect from light. Throw away any unused medicine after the expiration date. What should I tell my health care provider before I take this medicine? They need to know if you have any of these conditions: anemia asthma being treated with anticonvulsants if you frequently drink alcohol containing drinks kidney disease liver disease low level of folic acid or [id number] dehydrogenase poor nutrition or malabsorption porphyria severe allergies thyroid disorder an unusual or allergic reaction to sulfamethoxazole, trimethoprim, sulfa drugs, other medicines, foods, dyes, or preservatives or trying to get breast-feeding What should I watch for while using this medicine? Tell your doctor or health lawn care specialist if your symptoms do not improve. Drink several glasses of water a day to reduce the risk of kidney problems. Do not treat diarrhea with over the counter products. Contact your doctor if you have diarrhea that lasts more than 2 days or if it is severe and watery. This medicine can make you more sensitive to the sun. Keep out of the sun. If you cannot avoid being in the sun, wear protective clothing and use a sunscreen. Do not use sun lamps or tanning beds/booths. Cephalexin Monohydrate Oral tablet What is this medicine? CEPHALEXIN (sef a DARREN in) is a cephalosporin antibiotic. It is used to treat certain kinds of bacterial infections It will not work for colds, flu, or other viral infections. How should I use this medicine? Take this medicine by mouth with a full glass of water. Follow the directions on the prescription label. This medicine can be taken with or without food. Take your medicine at regular intervals. Do not take your medicine more often than directed. Take all of your medicine as directed even if you think you are better. Do not skip doses or stop your medicine early. Talk to your legal researcher regarding the use of this medicine in children. While this drug may be prescribed for selected conditions, precautions do apply. What side effects may I notice from receiving this medicine? Side effects that you should report to your doctor or health lawn care specialist as soon as possible: allergic reactions like skin rash, itching or hives, swelling of the face, lips, or tongue breathing problems pain or trouble passing urine redness, blistering, peeling or loosening of the skin, including inside the mouth severe or watery diarrhea unusually weak or tired yellowing of the eyes, skin Side effects that usually do not require medical attention (report to your doctor or health lawn care specialist if they continue or are bothersome): gas or heartburn genital or anal irritation headache joint or muscle pain nausea, vomiting What may interact with this medicine? probenecid some other antibiotics What if I miss a dose? If you miss a dose, take it as soon as you can. If it is almost time for your next dose, take only that dose. Do not take double or extra doses. There should be at least 4 to 6 hours between doses. Where should I keep my medicine? Keep out of the reach of children. Store at room temperature between 59 and 86 degrees F (15 and 30 degrees C). Throw away any unused medicine after the expiration date. What should I tell my health care provider before I take this medicine? They need to know if you have any of these conditions: kidney disease stomach or intestine problems, especially colitis an unusual or allergic reaction to cephalexin, other cephalosporins, penicillins, other antibiotics, medicines, foods, dyes or preservatives or trying to get breast-feeding What should I watch for while using this medicine? Tell your doctor or health lawn care specialist if your symptoms do not begin to improve in a few days. Do not treat diarrhea with over the counter products. Contact your doctor if you have diarrhea that lasts more than 2 days or if it is severe and watery. If you have diabetes, you may get a false-positive result for sugar in your urine. Check with your doctor or health lawn care specialist. You have been given the following additional information: Abscess, Incision And Drainage MRSA Skin Infection, Suspected Or Confirmed Sulfamethoxazole, Trimethoprim Oral tablet Cephalexin Monohydrate Oral tablet (Electronically signed by Sergio Martinez MD 01/29/2017 9:16)
--- NOTE | 2017-01-29 09:17 | ED MAR SUMMARY ---
..... Medication Administration Record [facility] [address] [place] [address] Patient: RADHA MOONEY Visit ID: [id number] 31y, M Weight: 81.6 kg Height/Length: 73 in BMI: 23.7 ALLERGIES: Penicillins Start 01:42 01/28/2017 Toshia Crawford R.N., Stop 02:01/28/2017 Toshia Crawford R.N. Medication Administered: IV NS (SALINE), Dose: IV Fluids over 4 hour(s), Rate: 250 mL/hr, Dispensed: 1000 mL bag, Site: #1 right AC. Medication Ordered: IV NS : initial bolus none -, then 250 mL/hr for 4h (NOW); Routine. Start 01:44 01/28/2017 Toshia Crawford R.N., Stop 02:01/28/2017 Toshia Crawford R.N. Medication Administered: VANCOMYCIN [IVPB], Dose: 2 gm IVPB over 2 hour(s), Rate: 270 mL/hr, Dispensed: 500 mL bag, Site: #1 right AC. Medication Ordered: Vancomycin IV 25 mg/kg (NOW). Given 01:45 01/28/2017 Toshia Crawford R.N. Medication Administered: BACTRIM DS [PO] (SULFAMETHOXAZOLE-TMP DS), Dose: 2 tab Tablets PO. Medication Ordered: Bactrim DS PO (Tablet 800-160 mg) 2 tabs (NOW).
== END 2017-01-28 02:35 | disposition home or self-care (01) ==
LOC: ED SRH 22:33
DX: L02.414 Cutaneous abscess of left upper limb (principal); B96.89 Other specified bacterial agents as the cause of diseases classified elsewhere; F15.20 Other stimulant dependence, uncomplicated; Z72.0 Tobacco use; Z88.0 Allergy status to penicillin
CPT/HCPCS: 90070; 90131; 90309; 90470; 90627; 91672; 95059